=== PATIENT | female | born 1950 | race Caucasian/White ===

== ENCOUNTER → 2016-11-24 | Outpatient (CLI) | payer OTHER ==
[2016-11-24 13:33] LABS: HEMOGLOBIN 13.8 gm/dl (12.3-15.3); RED BLOOD COUNT 4.36 M/UL (4.00-5.10); WHITE BLOOD COUNT 11.8 K/UL (4.5-11.0)
== END ==
LOC: LAB 12:16
PROVIDERS: Nurse Practitioner
DX: R23.8 Other skin changes (principal)
CPT/HCPCS: 36415; 85025; 85610; 85730

== ENCOUNTER 2016-12-24 19:54 | Emergency (ER) | payer OTHER ==
[2016-12-24 21:02] LABS: HEMOGLOBIN 11.9 gm/dl (12.3-15.3); RED BLOOD COUNT 3.85 M/UL (4.00-5.10); WHITE BLOOD COUNT 12.5 K/UL (4.5-11.0)
[2016-12-24 21:36] LABS: BUN/CREATININE RATIO 25 (0-10)
== END 2016-12-25 00:10 | disposition home or self-care (01) ==
LOC: ER1 19:54
PROVIDERS: Student in an Organized Health Care Education/Training Program
DX: J44.1 Chronic obstructive pulmonary disease with (acute) exacerbation (principal)
CPT/HCPCS: 36415; 71020; 80053; 81001; 82550; 82553; 83874; 83880; 84484; 85025; 87086; 93005; 94640; 94664; 96361; 96374; 99285; J2930; J7050; Q9963

== ENCOUNTER → 2020-10-07 | Outpatient (CLI) | payer MEDICARE, OTHER | LOC: MAMO 11:44 | DX: N64.4 Mastodynia (principal) | CPT/HCPCS: 76641-RT; 77065; G0279 ==

== ENCOUNTER → 2020-11-19 | Outpatient (CLI) | payer OTHER | LOC: CT 07:27 | DX: I10 Essential (primary) hypertension (principal); N64.4 Mastodynia; M94.0 Chondrocostal junction syndrome [Tietze]; J98.11 Atelectasis; R91.8 Other nonspecific abnormal finding of lung field | CPT/HCPCS: 36415; 71260; 82565; 84520; Q9963 ==

== ENCOUNTER 2022-03-16 21:55 | Emergency (ER) | payer MEDICARE ==
[2022-03-16 23:09] LABS: HEMOGLOBIN 15.1 gm/dl (12.3-15.3); RED BLOOD COUNT 4.8 M/UL (4.00-5.10); WHITE BLOOD COUNT 12.1 K/UL (4.5-11.0)
[2022-03-17] MEDS ORDERED: IBUPROFEN600 MG PO (03:27)
== END 2022-03-17 03:50 | disposition home or self-care (01) ==
LOC: ER1 21:55
PROVIDERS: Physician Assistant Medical
DX: R10.12 Left upper quadrant pain (principal); R10.32 Left lower quadrant pain; R10.812 Left upper quadrant abdominal tenderness; R10.814 Left lower quadrant abdominal tenderness; I25.10 Atherosclerotic heart disease of native coronary artery without angina pectoris; E78.5 Hyperlipidemia, unspecified; I10 Essential (primary) hypertension; J44.9 Chronic obstructive pulmonary disease, unspecified; Z90.49 Acquired absence of other specified parts of digestive tract; Z90.12 Acquired absence of left breast and nipple; Z88.0 Allergy status to penicillin
CPT/HCPCS: 80053; 81001; 82150; 82550; 82553; 83690; 84484; 85025; 93005; 96374; 96375; 99284; J1885; J2270; J2405; Q9967